=== PATIENT | male | born 1980 | race Caucasian/White ===

== ENCOUNTER 2021-04-21 09:45 | Emergency (ER) | payer BC, OTHER ==
[2021-04-21] MEDS ORDERED: ACETAMINOPHEN 325 MG TABLET (FP) PO ONE (10:03)
[2021-04-21] MEDS ORDERED: ACETAMINOPHEN 500 MG TABLET (FP) ONE (10:15)
[2021-04-21 10:20] VITALS: BP 150/100; PULSE 83; TEMP 98.9; BMI 35.4
== END 2021-04-21 11:10 | disposition left against medical advice (07) ==
LOC: FER 09:45
DX: S93.401A Sprain of unspecified ligament of right ankle, initial encounter (principal); X50.9XXA Other and unspecified overexertion or strenuous movements or postures, initial encounter
CPT/HCPCS: 73610-TC-RT-FY; 73630-TC-RT-FY; 99283-25